=== PATIENT | male | born 1970 | race Caucasian/White ===

== ENCOUNTER 2018-06-07 20:15 | Emergency (ER) | payer OTHER ==
[~2018-06-07] VITALS: Ht 180.3 cm; Wt 82.6 kg
[2018-06-07] MEDS ORDERED: KEFLEX500 M1 PO (22:01)
[2018-06-07 22:16] VITALS: BP 100/52
== END 2018-06-07 22:16 | disposition home or self-care (01) ==
LOC: ER 20:15
DX: S81.812A Laceration without foreign body, left lower leg, initial encounter (principal); F10.129 Alcohol abuse with intoxication, unspecified; W25.XXXA Contact with sharp glass, initial encounter; Y93.01 Activity, walking, marching and hiking; Y92.89 Other specified places as the place of occurrence of the external cause; Y99.8 Other external cause status

== ENCOUNTER 2020-08-10 21:54 | Emergency (ER) | payer OTHER ==
[~2020-08-10] VITALS: Ht 180.3 cm; Wt 86.2 kg
[~2020-08-10 21:54] MED LIST: KEFLEX500 M1 PO
[2020-08-10 22:40] LABS: URINE BILIRUBIN NEGATIVE (Negative); URINE BLOOD 2+ (Negative); URINE CLARITY CLEAR; URINE COLOR YELLOW; URINE GLUCOSE-RANDOM* NEGATIVE (Negative); URINE KETONES TRACE (Negative); URINE NITRITE-REFLEX NEGATIVE (Negative); URINE PROTEIN (DIPSTICK) NEGATIVE (Negative); URINE SPECIFIC GRAVITY >= 1.030 (1.005-1.035); URINE UROBILINOGEN 0.2 E.U./dl (0.2-1.0)
[2020-08-10 22:45] LABS: URINE LEUKOCYTES-REFLEX 1+ (Negative)
[2020-08-10 22:46] LABS: AMP/METHAMP POSITIVE (Negative); BARBITURATES Negative (Negative); BENZODIAZEPINES POSITIVE (Negative); COCAINE Negative (Negative); METHADONE Negative (Negative); OPIATES Negative (Negative); PCP Negative (Negative)
[2020-08-10 22:48] LABS: CASTS None Seen /LPF (None Seen); SQUAMOUS 0-3 Few /LPF (0-3)
[2020-08-10 22:48] LABS: BASOPHILS 0.6 % (0.0-2.0); EOSINOPHILS 2.4 % (0.0-3.0); HEMATOCRIT 45.9 % (42.0-52.0); LYMPHOCYTES 22.6 % (24.0-44.0); MCH 31.9 pg (26.0-34.0); MCHC 34.8 g/dL (28.0-37.0); MCV 91.9 fL (80.0-100.0); MONOCYTES 8.6 % (1.0-8.0); PLATELET COUNT 341 thou/uL (150-400); POLYS 65.8 % (36.0-66.0); RDW 13.6 % (10.5-14.5); WBC 16.7 thou/uL (4.0-11.0)
[2020-08-10 22:49] LABS: BACTERIA-REFLEX None Seen /HPF (None Seen); CRYSTALS None Seen /LPF (None Seen); MUCUS 0-3 Light strn/LPF (None Seen); URINE RBC None Seen /HPF (0-2); URINE WBC-REFLEX 6-15 Few /HPF (0-5)
[2020-08-10 22:55] LABS: CALCIUM 9.2 mg/dL (8.5-10.1); CREATININE 1.2 mg/dL (0.7-1.3); POTASSIUM 3.4 mmol/L (3.5-5.1)
[2020-08-10 23:01] LABS: ALBUMIN 4.1 g/dL (3.4-5.0); TOTAL PROTEIN 7.2 g/dL (6.4-8.2)
[2020-08-10 23:56] VITALS: BP 117/76
[2020-08-10] MEDS ORDERED: FLOMAX0.4 MG PO (23:56)
[2020-08-10] MEDS ORDERED: ONDANSETRON ODT8 MG PO (23:56)
[2020-08-10] MEDS ORDERED: TORADOL 10 MG T10 MG PO (23:56)
== END 2020-08-11 00:03 | disposition home or self-care (01) ==
LOC: ER 21:54
PROVIDERS: Emergency Medicine
DX: N20.1 Calculus of ureter (principal); R11.2 Nausea with vomiting, unspecified